=== PATIENT | female | born 1965 | race African-American/Black ===

== ENCOUNTER 2017-05-12 09:07 | Outpatient (CLI) | payer MEDICARE, MEDICAID | END 2017-05-12 09:08 | disposition home or self-care (01) | LOC: BICMAMMO 09:07 | PROVIDERS: ATTEND Nurse Practitioner Family | DX: Z12.31 Encounter for screening mammogram for malignant neoplasm of breast (principal) | CPT/HCPCS: 77063; 77066; 77067; G0279 ==

== ENCOUNTER 2018-07-13 10:29 | Outpatient (CLI) | payer MEDICARE, MEDICAID ==
--- NOTE | 2018-07-23 13:18 | MMO ---
Bilateral MAMMO Bilat Screen [facility]. CLINICAL HISTORY: Patient is 53 years old and is seen for screening. The patient has no family history of breast cancer. The patient has no personal history of cancer. VIEWS: The views performed were: bilateral craniocaudal with tomosynthesis and bilateral mediolateral oblique with tomosynthesis. FILMS COMPARED: The present examination has been compared to prior imaging studies performed at [facility] on 09/09/2005, 10/22/2007, 11/13/2008, 01/21/2013, 05/05/2014, 02/27/2016 and 05/12/2017, and at [facility] on 05/12/2000. MAMMOGRAM FINDINGS: The breasts are almost entirely fat. There are no suspicious masses, calcifications or areas of architectural distortion. IMPRESSION: THERE IS NO MAMMOGRAPHIC EVIDENCE OF MALIGNANCY. A ROUTINE FOLLOW-UP MAMMOGRAM IN 1 YEAR IS RECOMMENDED. THE RESULTS OF THIS EXAM WERE SENT TO THE PATIENT. ACR BI-RADS Category 1 - Negative MAMMOGRAPHY NOTE: 1. A negative mammogram report should not delay a biopsy if a dominant of clinically suspicious mass is present. 2. Approximately 10% to 15% of breast cancers are not detected by mammography. 3. Adenosis and dense breasts may obscure an underlying neoplasm.
== END 2018-07-13 10:30 | disposition home or self-care (01) ==
LOC: BICMAMMO 10:29
PROVIDERS: ATTEND Nurse Practitioner Family
DX: Z12.31 Encounter for screening mammogram for malignant neoplasm of breast (principal)
CPT/HCPCS: 77063; 77067

== ENCOUNTER 2018-08-29 10:30 | Inpatient (IN) | payer MEDICARE, MEDICAID ==
[2018-09-03] MEDS ORDERED: Fentanyl 250 MCG/5 ML VIAL ONE (06:34)
[2018-09-03] MEDS ORDERED: Lidocaine 2% Jelly 5 ML TUBE ONE (06:34)
[2018-09-03] MEDS ORDERED: Sodium Chloride 0.9% 100 ML ONE (06:43)
[2018-09-03] MEDS ORDERED: cefOXitin 2 GM VIAL ONE ×2 (06:43→09:32)
[2018-09-03] MEDS ORDERED: Fentanyl 100 MCG/2 ML VIAL ONE ×4 (07:15→13:08)
[2018-09-03] MEDS ORDERED: Midazolam HCl 2 mg/2 ml Vial ONE (07:15)
[2018-09-03] MEDS ORDERED: Albuterol Sulfate HFA (OR ONLY) ONE (09:16)
[2018-09-03] MEDS ORDERED: Promethazine HCl 25 MG/ML VIAL IM PRN ×2 (09:49→09:59)
[2018-09-03] MEDS ORDERED: hydrALAZINE 20 MG/ML VIAL SLOW IVP PRN (09:49)
[2018-09-03] MEDS ORDERED: Morphine 4 MG/ML VIAL SLOW IVP PRN (09:49)
[2018-09-03] MEDS ORDERED: Morphine 10 MG/ML VIAL SLOW IVP PRN (09:49)
[2018-09-03] MEDS ORDERED: Ondansetron PF 4 MG/2 ML Vial IVP PRN (09:49)
[2018-09-03] MEDS ORDERED: Insulin Regular 300 UNITS/3 ML VIAL SC PRN ×2 (09:49→10:51)
[2018-09-03] MEDS ORDERED: Promethazine HCl 25 MG/ML VIAL SLOW IVP PRN (09:59)
[2018-09-03] MEDS ORDERED: Ondansetron HCl/PF 4 MG/2 ML Vial IVP PRN (09:59)
[2018-09-03] MEDS ORDERED: Dextrose 5% in Water 1,000 ML IV PRN (10:51)
[2018-09-03] MEDS ORDERED: HUMULIN R 100 UNITS in Sodium Chloride 0.9% 100 ML IVPB SCH (10:51)
[2018-09-03] MEDS ORDERED: Dextrose 50% Abboject 50 ML SYRINGE SLOW IVP PRN (10:51)
[2018-09-03] MEDS ORDERED: Bupivacaine HCl 0.5%/Epinephrine 1:200,000/PF 30 ml Vial ONE (12:04)
[2018-09-03] MEDS ORDERED: HYDROmorphone 2 MG/ML VIAL ONE ×3 (13:06→15:51)
[2018-09-03] MEDS ORDERED: Glycopyrrolate 0.2 MG/ML 5 ML SYRINGE ONE (13:48)
[2018-09-03] MEDS ORDERED: Rocuronium Bromide 10 MG/ML (10ML VIAL) ONE (13:48)
[2018-09-03] MEDS ORDERED: Ketorolac Tromethamine 30 MG/ML VIAL ONE (13:48)
[2018-09-03] MEDS ORDERED: PROPOFOL 200 MG/20 ML VIAL ONE (13:48)
[2018-09-03] MEDS ORDERED: Lidocaine 1% PF 5 ML VIAL ONE (13:48)
[2018-09-03] MEDS ORDERED: Ondansetron PF 4 MG/2 ML Vial ONE (13:48)
[2018-09-03] MEDS ORDERED: PHENYLEPHRINE-NS 100 MCG/ML 10 ML SYRINGE ONE (13:48)
--- NOTE | 2018-09-03 15:41 | OP ---
DATE OF PROCEDURE: 09/03/2018 PREOPERATIVE DIAGNOSIS: Transverse colon cancer. PROCEDURE PERFORMED: Laparoscopic hand-assisted extended right hemicolectomy. 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 FINDINGS: The tattoo was located in the central transverse colon. There was no evidence of metastatic disease to the liver or obviously to the lymph nodes. DESCRIPTION OF PROCEDURE: After informed consent was obtained, the patient was taken to the operating room, given general endotracheal anesthesia, placed in the supine position. Abdomen was prepped and draped in usual fashion. Local anesthesia infiltrated subcutaneously, and 5 mm incision was performed subumbilical. Veress needle inserted. Drop test performed. Pneumoperitoneum was created to a volume of 2 L of carbon dioxide. Under direct vision, a 5 mm port was placed. Pneumoperitoneum created to a pressure of 15 mmHg. A 0-degree laparoscope was inserted under direct vision. Two 5 mm ports were placed; one in right lower quadrant, one in left upper quadrant and then another one in the right upper quadrant. The right colon was mobilized along the white line of Toldt. The hepatic flexure was mobilized and the transverse colon mobilized. This was all done utilizing the LigaSure. Then, a hand-assisted port was brought in to further dissect and then to retrieve the colon through the upper midline incision. The transverse colon was divided 5 cm distal to the dye. The mesentery divided utilizing a LigaSure. The middle colic was divided between clamps and tied with 3-0 Vicryl tie. Then, the ileocolic was divided between clamps and tied with 2-0 Vicryl tie. The mesentery divided using the LigaSure. The ileum was divided with the JUSTIN. The transverse colon was divided with the JUSTIN. Specimen was sent to pathology for further analysis. Then, a gals-ck-flja functional, end-to-end pro-peristaltic anastomosis was performed. Enterotomy was performed in the transverse colon and terminal ileum. JUSTIN inserted 1 limb in each limb of bowel, closed, fired. The common enterotomy closed with a running 2-0 V-Loc transversely. Hemostasis assured. The abdomen thoroughly irrigated. Irrigation fluid removed. The fascia closed with a running looped #1 PDS. The instruments and gowns were changed. The wound was thoroughly irrigated with saline. Subcu reapproximated with interrupted 3-0 Vicryl, skin closed with running subcuticular 4-0 Rapide as well as interrupted 4-0 Rapide. Dermabond applied. The patient tolerated the procedure well, transferred to Recovery in good condition. Sponge and needle count verified correct x2. Job ID: [id number]
[2018-09-03] MEDS: Sodium Chloride 0.9% 1,000 ML IV SCH (17:52)
[2018-09-03] MEDS: Acetaminophen 1,000 MG in Premix Bag 1 BAG IVPB SCH ×2 (17:52→18:21)
[2018-09-03] MEDS: metroNIDAZOLE 500 MG in Premix Bag 1 BAG IVPB SCH ×2 (17:52→18:07)
[2018-09-03] MEDS: Ketorolac Tromethamine 30 MG/ML VIAL IVP SCH ×2 (17:53→18:10)
[2018-09-03] MEDS: CEFAZOLIN 2 GM in Premix Bag 1 BAG IVPB SCH (18:10)
[2018-09-03 18:24] VITALS: BMI 31.4
[2018-09-03] MEDS: Famotidine/PF 20 mg/2ml Vial SLOW IVP SCH (20:19)
[2018-09-03] MEDS: Famotidine 20 MG TAB PO SCH (20:19)
[2018-09-03] MEDS: Morphine 2 MG/ML SYRINGE SLOW IVP PRN (22:25)
[2018-09-04] MEDS: Ketorolac Tromethamine 30 MG/ML VIAL IVP SCH ×5 (00:22→23:07)
[2018-09-04] MEDS: Acetaminophen 1,000 MG in Premix Bag 1 BAG IVPB SCH ×2 (00:23→05:46)
[2018-09-04] MEDS: metroNIDAZOLE 500 MG in Premix Bag 1 BAG IVPB SCH (00:23)
[2018-09-04] MEDS: Sodium Chloride 0.9% 1,000 ML IV SCH ×4 (00:27→23:09)
[2018-09-04] MEDS: CEFAZOLIN 2 GM in Premix Bag 1 BAG IVPB SCH (02:28)
[2018-09-04] MEDS: Morphine 2 MG/ML SYRINGE SLOW IVP PRN ×3 (03:09→20:37)
[2018-09-04 06:27] LABS: #Basophils 0.1 thou/uL (0.0-0.2); #Eosinphils 0.1 thou/uL (0.0-0.7); #Lymphocytes 3.2 thou/uL (1.20-3.40); #Monocytes 0.6 thou/uL (0.11-0.59); #Neutrophils 7.8 thou/uL (1.40-6.50); %Basophils 0.6 % (0.0-1.0); %Eosinophils 0.9 % (0.0-10.0); %Lymphocytes 27.4 % (21.0-51.0); %Monocytes 5.1 % (0.0-10.0); Hemoglobin 9.5 g/dL (12.0-16.0); Mean Corpuscular HGB CONC 30.9 g/dL (32.0-36.0); Mean Corpuscular Hemoglobin 23.5 pg (27.0-31.0); Mean Corpuscular Volume 76.1 fL (78.0-98.0); Mean Platelet Volume 9.5 fL (7.4-10.4); Platelet Count 342 thou/uL (130-400); RBC Distribution Width 18.2 % (11.5-14.5); Red Blood Cell (RBC) Count 4.06 mill/uL (4.20-5.40); White Blood Cell (WBC) Count 11.8 thou/uL (4.8-10.8)
[2018-09-04 06:47] LABS: Anion Gap 10 mmol/L (10-20); BUN (Urea Nitrogen) 4 mg/dL (9.8-20.1); Calc. Creatinine Clearance 134 mL/min (70-130); Calcium 8.4 mg/dL (7.8-10.44); Carbon Dioxide 25 mmol/L (22-29); Chloride 107 mmol/L (98-107); Estimated GFR-MDRD Greater than 90; Glucose 101 mg/dL (70-105); Potassium 3.3 mmol/L (3.5-5.1); Sodium 139 mmol/L (136-145)
[2018-09-04] MEDS: Famotidine/PF 20 mg/2ml Vial SLOW IVP SCH ×2 (07:53→22:47)
[2018-09-04] MEDS: Enoxaparin Sodium 40 MG/0.4 ML SYRINGE SC SCH ×2 (07:53→12:44)
--- NOTE | 2018-09-04 09:46 | PRG ---
DATE OF SERVICE: 09/04/2018 SUBJECTIVE: The patient has been off her insulin drip since midnight. She has minimal pain, but she has had some mild nausea. Good urine output. OBJECTIVE: VITAL SIGNS: Her temperature is 98.6, pulse 73, and blood pressure 130/64. GENERAL: She looks good. ABDOMEN: Soft and nondistended. Incisions healing well. No evidence of infection. ASSESSMENT: Doing well. PLAN: Transfer to the floor. Avocado™. Job ID: [id number]
[2018-09-04] MEDS: Famotidine 20 MG TAB PO SCH ×2 (10:12→20:37)
[2018-09-04] MEDS ORDERED: Insulin Regular 300 UNITS/3 ML VIAL SC PRN (19:37)
[2018-09-05] MEDS: Ketorolac Tromethamine 30 MG/ML VIAL IVP SCH ×4 (06:18→23:43)
[2018-09-05] MEDS: Famotidine/PF 20 mg/2ml Vial SLOW IVP SCH ×2 (08:45→22:31)
[2018-09-05] MEDS: Enoxaparin Sodium 40 MG/0.4 ML SYRINGE SC SCH (08:46)
[2018-09-05] MEDS: Famotidine 20 MG TAB PO SCH ×2 (08:46→20:03)
[2018-09-05] MEDS: Sodium Chloride 0.9% 1,000 ML IV SCH ×2 (08:48→14:06)
[2018-09-05] MEDS ORDERED: HYDROcodone/Acetaminophen 10/325 mg Tablet PO PRN ×2 (11:07)
--- NOTE | 2018-09-05 11:25 | PRG ---
DATE OF SERVICE: 09/05/2018 SUBJECTIVE: The patient is stating that she feels pretty good, just a little sore. She has had 2 bowel movements. No nausea or vomiting. She is tolerating liquids well. OBJECTIVE: VITAL SIGNS: Temperature 97.7, pulse 83, and blood pressure 146/83. GENERAL: She is up walking. ABDOMEN: Soft and nondistended. Incisions healing well. ASSESSMENT: Doing well. PLAN: Advance diet, home soon. Job ID: [id number]
[2018-09-06] MEDS: Sodium Chloride 0.9% 1,000 ML IV SCH ×2 (03:42→07:58)
[2018-09-06] MEDS: Ketorolac Tromethamine 30 MG/ML VIAL IVP SCH (05:28)
[2018-09-06] MEDS: Famotidine/PF 20 mg/2ml Vial SLOW IVP SCH (07:55)
[2018-09-06] MEDS: Famotidine 20 MG TAB PO SCH (07:56)
[2018-09-06] MEDS: Enoxaparin Sodium 40 MG/0.4 ML SYRINGE SC SCH (07:56)
[2018-09-06 08:30] VITALS: BP 126/79; TEMP 97.5
--- NOTE | 2018-09-06 16:45 | DIS ---
DATE OF ADMISSION: 09/03/2018 DATE OF DISCHARGE: 09/06/2018 DISCHARGE DIAGNOSIS: Transverse colon cancer. PROCEDURES DURING ADMISSION: Extended right hemicolectomy, laparoscopic. HOSPITAL COURSE: The patient was admitted. She had undergone a bowel prep. She underwent a laparoscopic resection of the right colon including the half of the transverse colon. Postoperatively, she has done well. Her bowel function returned. She is tolerating a regular diet. She is afebrile. Pain is controlled on p.o. medications. She is discharged home on hydrocodone and she will follow up with me in 2 weeks. Job ID: [id number]
== END 2018-09-06 10:15 | disposition home or self-care (01) | DRG 331 ==
LOC: EDSTATUS 10:30 → SURG A 09-03 06:06 → IMCU/EMU 09-03 16:28 → SURG A 09-04 19:02
PROVIDERS: ADMIT Surgery; ATTEND Surgery
PROC: 0DTF0ZZ Resection of Right Large Intestine, Open Approach (ICD-10-PCS; principal; 2018-09-03)
DX: C18.4 Malignant neoplasm of transverse colon (principal); Z98.42 Cataract extraction status, left eye
CPT/HCPCS: 36415; 36416; 80048; 85025; 88309; 94640; J0131; J0670; J0690; J0694; J1170; J1650; J1815; J1885; J2001; J2250; J2270; J2405; J2704; J3010; J3490; J7620; S0028

== ENCOUNTER 2018-08-29 15:13 | Outpatient (CLI) | payer MEDICARE, MEDICAID ==
[2018-08-29 17:47] LABS: #Basophils 0.1 thou/uL (0.0-0.2); #Eosinphils 0.2 thou/uL (0.0-0.7); #Lymphocytes 3.2 thou/uL (1.20-3.40); #Monocytes 0.4 thou/uL (0.11-0.59); #Neutrophils 5.4 thou/uL (1.40-6.50); %Basophils 1.1 % (0.0-1.0); %Eosinophils 2.1 % (0.0-10.0); %Lymphocytes 34.8 % (21.0-51.0); Anisocytosis SLIGHT = 6-15 cells (100X) (0-5/hpf); Hypochromia SLIGHT = 6-15 cells (100X) (0-5/hpf); MDiff Complete? YES; Mean Corpuscular HGB CONC 30.6 g/dL (32.0-36.0); Mean Corpuscular Hemoglobin 22.3 pg (27.0-31.0); Mean Corpuscular Volume 73.1 fL (78.0-98.0); Mean Platelet Volume 8.9 fL (7.4-10.4); Microcytosis SLIGHT = 6-15 cells (100X) (0-5/hpf); Platelet Count 359 thou/uL (130-400); Platelet Morphology Comment Appears Adequate; RBC Distribution Width 18.6 % (11.5-14.5); Red Blood Cell (RBC) Count 4.46 mill/uL (4.20-5.40); White Blood Cell (WBC) Count 9.3 thou/uL (4.8-10.8)
[2018-08-29 17:47] LABS: ALT (SGPT) 15 U/L (8-55); AST (SGOT) 13 U/L (5-34); Albumin 3.9 g/dL (3.5-5.0); Alkaline Phosphatase 76 U/L (40-150); Anion Gap 9 mmol/L (10-20); BUN (Urea Nitrogen) 9 mg/dL (9.8-20.1); Bilirubin, Total 0.2 mg/dL (0.2-1.2); Calc. Creatinine Clearance 0 mL/min (70-130); Calcium 9.6 mg/dL (7.8-10.44); Carbon Dioxide 32 mmol/L (22-29); Chloride 104 mmol/L (98-107); Estimated GFR-MDRD 83; Globulin 3.8 g/dL (2.4-3.5); Glucose 130 mg/dL (70-105); Protein, Total 7.7 g/dL (6.0-8.3); Sodium 142 mmol/L (136-145)
== END 2018-08-29 15:14 | disposition home or self-care (01) ==
LOC: LABBT 15:13
PROVIDERS: ATTEND Surgery
DX: Z01.818 Encounter for other preprocedural examination (principal); C18.4 Malignant neoplasm of transverse colon
CPT/HCPCS: 80053; 83036; 85025; 93005; 93010

== ENCOUNTER 2019-09-24 13:37 | Outpatient (CLI) | payer MEDICARE, MEDICAID ==
--- NOTE | 2019-09-24 15:17 | MMO ---
Bilateral MAMMO Bilat Screen [facility]. CLINICAL HISTORY: Patient is 54 years old and is seen for screening. The patient has no family history of breast cancer. The patient has no personal history of cancer. VIEWS: The views performed were: bilateral craniocaudal with tomosynthesis and bilateral mediolateral oblique with tomosynthesis. FILMS COMPARED: The present examination has been compared to prior imaging studies performed at [facility] on 02/27/2016, 05/12/2017 and 07/13/2018. This study has been interpreted with the assistance of computer-aided detection. MAMMOGRAM FINDINGS: The breasts are almost entirely fat. There are no suspicious masses, suspicious calcifications, or new areas of architectural distortion. IMPRESSION: THERE IS NO MAMMOGRAPHIC EVIDENCE OF MALIGNANCY. A ROUTINE FOLLOW-UP MAMMOGRAM IN 1 YEAR IS RECOMMENDED. THE RESULTS OF THIS EXAM WERE SENT TO THE PATIENT. ACR BI-RADS Category 1 - Negative MAMMOGRAPHY NOTE: 1. A negative mammogram report should not delay a biopsy if a dominant of clinically suspicious mass is present. 2. Approximately 10% to 15% of breast cancers are not detected by mammography. 3. Adenosis and dense breasts may obscure an underlying neoplasm. Reported by: CALLUM PADRON MD Electonically Signed: [id number]
== END 2019-09-24 13:38 | disposition home or self-care (01) ==
LOC: BICMAMMO 13:37
PROVIDERS: ATTEND Nurse Practitioner Family
DX: Z12.31 Encounter for screening mammogram for malignant neoplasm of breast (principal)
CPT/HCPCS: 77063; 77067

== ENCOUNTER 2021-04-08 08:40 | Outpatient (CLI) | payer MEDICARE, MEDICAID | END 2021-04-08 08:41 | disposition home or self-care (01) | LOC: BICMAMMO 08:40 | PROVIDERS: ATTEND Nurse Practitioner Family | DX: Z12.31 Encounter for screening mammogram for malignant neoplasm of breast (principal) | CPT/HCPCS: 77063; 77067 ==

== ENCOUNTER 2022-05-24 08:35 | Outpatient (CLI) | payer OTHER, MEDICAID | END 2022-05-24 08:36 | disposition home or self-care (01) | LOC: BICMAMMO 08:35 | PROVIDERS: ATTEND Nurse Practitioner Family | DX: Z12.31 Encounter for screening mammogram for malignant neoplasm of breast (principal) | CPT/HCPCS: 77063; 77067 ==

== ENCOUNTER 2023-06-02 10:31 | Outpatient (CLI) | payer OTHER, MEDICAID | END 2023-06-02 10:32 | disposition home or self-care (01) | LOC: BICMAMMO 10:31 | PROVIDERS: ATTEND Nurse Practitioner Family | DX: Z12.31 Encounter for screening mammogram for malignant neoplasm of breast (principal) | CPT/HCPCS: 77063; 77067 ==

== ENCOUNTER 2023-11-06 11:51 | Outpatient (CLI) | payer OTHER, MEDICAID | END 2023-11-06 11:52 | disposition home or self-care (01) | LOC: BICRAD 11:51 | PROVIDERS: ATTEND Nurse Practitioner Family | DX: M25.511 Pain in right shoulder (principal); M19.011 Primary osteoarthritis, right shoulder ==

== ENCOUNTER 2024-06-13 08:25 | Outpatient (CLI) | payer OTHER, MEDICAID | END 2024-06-13 08:26 | disposition home or self-care (01) | LOC: BICMAMMO 08:25 | PROVIDERS: ATTEND Nurse Practitioner Family | DX: Z12.31 Encounter for screening mammogram for malignant neoplasm of breast (principal) | CPT/HCPCS: 77063; 77067 ==

== ENCOUNTER 2025-02-28 08:50 | Outpatient (CLI) | payer OTHER, MEDICAID | END 2025-02-28 08:51 | disposition home or self-care (01) | LOC: BICRAD 08:50 | PROVIDERS: ATTEND Nurse Practitioner Family | DX: M25.561 Pain in right knee (principal); M17.11 Unilateral primary osteoarthritis, right knee ==

== ENCOUNTER 2025-03-13 11:34 | Emergency (ER) | payer OTHER, MEDICAID | END 2025-03-13 13:58 | disposition home or self-care (01) | LOC: ERS 11:34 | DX: M25.561 Pain in right knee (principal); I10 Essential (primary) hypertension; E11.9 Type 2 diabetes mellitus without complications; Z79.84 Long term (current) use of oral hypoglycemic drugs; Z79.899 Other long term (current) drug therapy | CPT/HCPCS: 99283 ==